=== PATIENT | female | born 1995 ===

== ENCOUNTER 2018-04-30 02:41 | Inpatient (IN) ==
[~2018-04-30 02:41] MED LIST: *HR* Nalbuphine 10 MG/ML AMPUL IVP PRN; Famotidine 20 MG/2 ML VIAL IVP PRN; Metoclopramide 10 MG/2 ML VIAL IVP PRN; Naloxone 0.4 MG/ML INJ IVP PRN; Ondansetron 4 MG/2 ML VIAL IVP PRN
[2018-04-30] MEDS ORDERED: Ringers Solution, Lactated 1,000 ML IVC SCH (02:45)
[2018-04-30 03:07] LABS: Amphetamine Screen,Urine Negative ng/mL (Cutoff=1000); Barbiturate Screen,Urine Negative ng/mL (Cutoff=200); Benzodiazepines Screen,Urine Negative ng/mL (Cutoff=200); Cannabinoid Screen,Urine Negative ng/mL (Cutoff = 50); Cocaine Screen,Urine Negative ng/mL (Cutoff= 300); Opiate Screen,Urine Negative ng/mL (Cutoff=300); Phencyclidine Screen,Urine Negative ng/mL (Cutoff=25)
[2018-04-30 03:11] LABS: Basophils % 0.2 %; Eosinophils # 0.1 K/mcL (0.0-0.6); Eosinophils % 0.6 %; Hematocrit 37.4 % (35.3-44.9); Hemoglobin 12.8 g/dL (11.5-15.4); Immature Granulocytes % 0.8 % (0-4); Lymphocytes # 1.9 K/mcL (0.6-4.6); Lymphocytes % 20.1 %; Mean Corpuscular HGB Conc 34.2 g/dL (31.6-35.5); Mean Corpuscular Hemoglobin 30.4 pg (28.0-33.3); Mean Corpuscular Volume 88.8 fL (83.0-100.0); Monocytes # 0.7 K/mcL (0.0-1.3); Monocytes % 7.1 %; Neutrophils # 6.6 K/mcL (1.6-8.9); Platelet Count 189 K/mcL (140-400); Red Blood Count 4.21 M/mcL (3.82-4.97); Red Cell Distribution Width 12.9 % (11.5-14.5); Segmented Neutrophils % 71.2 %
--- NOTE | 2018-04-30 06:26 | OB/GYN History & Physical ---
Date of Encounter: 04/30/18 Time of Encounter: 06:22 Assessment and Plan (1) 36 weeks gestation of Current visit: Yes Status: Acute admitted for delivery (2) Spontaneous rupture of membranes Current visit: Yes Status: Acute Admitted for delivery Dr. Bhat aware of POC GBS: Negative History of Present Illness Chief complaint: SROM HPI: Ms. Weller is a 22 year old female at 36w6d with EDC of 05/22/2018 presented to labor and delivery with complaints of spontaneous rupture of membranes. Patient reports she woke up in a puddle of clear fluid at 0050. Patient denies feeling contractions. Patient reports good movement. Patient denies any complications with . Patient did have a positive chlamydia test early in but since has had a negative ОЛЬГА. Patient receives care with Dr. Scott. Blood type: O positive Rubella: Immune Hep B: nonreactive GBS: Negative Past Med Surg Social Fam HX - Past Medical History Source: patient Medical history: asthma Psychiatric history: no psych history - Past Surgical History Surgical History: no surgical history - Social History Smoking Status: Never smoker Alcohol use: none Drug use: none Current living situation: Home - Independent Activity Level: Independent ambulation - Family History Mother Age: 41 Living Status: Still Living Hx Family Cardiac Disorders: No Hx Family Respiratory Disorders: No Hx Family Cancer: No Hx Family GI Disorders: No Hx Family Genitourinary Disorders: No Hx Family Endocrine Disorder: No Hx Family Musculoskeletal Disorders: No Hx Family Neuromuscular Disorders: No Hx Family Neurologic Disorders: No Hx Family HEENT Disorders: No Hx Family Autoimmune Disorders: No Hx Family Reproductive Disorders: No Hx Family Psychosocial Disorders: No Hx Family Medical Disorders: No Obstetrical History - Pregnancies : 2 Para: 0 Term: 0 : 0 Ab's: 1 (2015) Livin Medications and Allergies Formula Tablet 1 tab PO DAILY 04/30/18 [History] Allergy/AdvReac Type Severity Reaction Status Date / Time No Known Allergies Allergy Verified 04/30/18 03:36 Review of System OB - Constitutional Constitutional ROS IM: no chills, no fever(s), no headache(s) - Cardiovascular Cardiovascular: no chest pain, no edema, no lightheadedness, no palpitations, no syncope - Respiratory Respiratory: no cough - Gastrointestinal Gastrointestinal: no abdominal pain, no cramping, no diarrhea, no heartburn, no nausea, no vomiting - Genitourinary Genitourinary: vaginal discharge (per HPI), no abnormal vaginal bleeding, no dysuria, no flank pain, no urinary frequency, no urinary urgency, no vaginal odor, no vaginal pruritis Exam - Vital Signs Vital signs: Initial Vital Signs Temp Pulse Resp BP 99.1 F 111 18 135/70 04/30/18 02:25 04/30/18 02:25 04/30/18 02:25 04/30/18 02:25 - Constitutional Constitutional: well developed, well nourished, no acute distress, average body habitus - HEENT HEENT: Normocephaly, Mucus Membranes Moist - Neck Neck exam: full ROM, supple - Lungs Respiratory exam: CTAB - Cardiovascular Cardiovascular exam: RRR, +S1, +S2 - Abdomen Abdomen: Present: bowel sounds normal, gravid, non tender - Extremities Extremities exam: full ROM, normal inspection Deep Tendon Reflex Grade: 2+ Normal - Cervix Dilation: 6 (per RN ) Effacement: 80 Station: -1 - Uterus Uterus exam: Present: normal size, normal contour - Anus/Rectum Anus/Rectum: Present: normal perianal skin - Comments Comments: FHR 135 bpm moderate variability Contractions 2-3 min apart Results Result Diagrams: 04/30/18 02:59 All other labs normal. - VTE Reasons for not Prescribing Prophylaxis: Treatment not Indicated - Low risk for VTE
[2018-04-30] MEDS ORDERED: miSOPROStol 25 MCG TABLET PO SCH (08:00)
[2018-04-30] MEDS ORDERED: Oxytocin 20 units/ LR 1000 mL 20 UNIT/1,000 ML BAG IVC ONE (12:23)
--- NOTE | 2018-04-30 13:06 | OB Labor Progress Note ---
Date of Encounter: 04/30/18 Time of Encounter: 13:04 Labor Progress Note - Subjective Subjective: tolerating contractions well - Cervix Cervix: 9 per RN - Heart Tones Heart Tones: 135/moderate/+accels/ variable - [place]: adjusted - Interventions Interventions: frequent repositioning Anticipate - Plan Physician notified: No
--- NOTE | 2018-04-30 15:41 | OB/GYN Procedure Note ---
Delivery - Delivery Date: 04/30/18 Provider: Claudia Weaver Intrapartum events: none Delivery induction: misoprostol Delivery monitor: external FHT, external uterine Anesthesia: local Quantitated Blood Loss: 300 - (s) Infant A Infant Delivery Date: 04/30/18 Infant Delivery Time: 14:06 Presentation: vertex Position: OA Route of delivery: Gender: Male Viability: Viable Pounds: 7 Ounces: 8 at 1 minute: 8 at 5 mins: 9 Shoulder Dystocia: not encountered Specimens collected: cord blood Placenta: spontaneous Cord: nuchal cord - Repair Episiotomy: none Laceration Description: Perineal - 2nd Degree - Complications Delivery complications: none Delivery comments: Spontaneous rupture and cytotec for augmentation, progressed to complete, maternal bearing down efforts to of liveborn male. Vertex delivered OA, Nuchal cord identified and reduced, after repositioning maternal legs shoulders followed. No shoulder dystocia encountered. placed on maternal abdomen for drying and stimulation. APGARS 8/9. Placenta delivered sponatenously and complete upon inspection, fundus massaged until firm, and pitocin started per policy, moderate uterine bleeding still noted, methergine given IM. Second degree perineal laceration repaired with the assistance of Dr. Escalante. Mom and left bonding skin to skin. - Disposition Mom disposition: stable in LDR [place] disposition: stable in LDR
[2018-04-30] MEDS ORDERED: Benzocaine/Menthol 56 GM AEROSOL SPRAY TP PRN (16:22)
[2018-04-30] MEDS ORDERED: Acetaminophen 325 MG TABLET PO PRN (16:22)
[2018-04-30] MEDS ORDERED: Oxytocin 20 units/ LR 1000 mL 20 UNIT/1,000 ML BAG IVC SCH (16:22)
[2018-04-30] MEDS ORDERED: Lanolin 28 GM TUBE TP PRN (16:22)
[2018-04-30] MEDS: Ibuprofen 600 MG TABLET PO PRN (19:48)
[2018-05-01] MEDS ORDERED: Methylergonovine 0.2 MG/ML AMPUL IM ONE (07:27)
[2018-05-01 08:08] LABS: Basophils % 0.3 %; Eosinophils % 0.3 %; Hematocrit 33.6 % (35.3-44.9); Hemoglobin 11.3 g/dL (11.5-15.4); Immature Granulocytes % 0.8 % (0-4); Lymphocytes # 2.9 K/mcL (0.6-4.6); Lymphocytes % 22.1 %; Mean Corpuscular HGB Conc 33.6 g/dL (31.6-35.5); Mean Corpuscular Hemoglobin 30.8 pg (28.0-33.3); Mean Corpuscular Volume 91.6 fL (83.0-100.0); Mean Platelet Volume 9.9 fL (9.4-12.4); Monocytes # 0.7 K/mcL (0.0-1.3); Monocytes % 5.3 %; Neutrophils # 9.3 K/mcL (1.6-8.9); Platelet Count 185 K/mcL (140-400); Red Blood Count 3.67 M/mcL (3.82-4.97); Red Cell Distribution Width 13.2 % (11.5-14.5); Segmented Neutrophils % 71.2 %
--- NOTE | 2018-05-01 08:12 | Operative Note ---
Date of procedure: 04/30/18 Pre-op diagnosis: Status post vaginal delivery, vaginal laceration Post-op diagnosis: same Procedure: Repair of perineal laceration Complications: none Anesthesia: local Surgeon: Jose Escalante Was there an visitor service assistant present: Yes Veterinary Surgery Technologist: Claudia Weaver Estimated blood loss (cc): 300 Specimen: none Condition: stable Disposition: other Procedure in Detail: She is a 22-year-old female who had a normal spontaneous vaginal delivery without any complications. Patient did have a perineal laceration which extended up into the right labia majora. The metal drill press operator noted the delivery was having difficulty reapproximating the edges and asked for assistance. I did present identified with the laceration was and this was repaired with a 3-0 Monocryl in usual fashion. Once we had the repair intact no bleeding was noted uterus is explored clots removed from the endometrial cavity and the procedure was terminated patient tolerated the procedure well.
[2018-05-01] MEDS: Ibuprofen 600 MG TABLET PO PRN (08:22)
[2018-05-01] MEDS: Prenatal Vit/FA 1 EACH TABLET PO SCH (08:25)
--- NOTE | 2018-05-01 08:59 | OB/GYN Progress Note ---
Date of Encounter: 05/01/18 Time of Encounter: 08:56 - Assessment and Plan (1) Vaginal delivery Current Visit: Yes Status: Acute Patient meeting day one milestones. Pain well-controlled with prescribed medications. Voiding without difficulty, tolerating regular diet. Patient reports bowel movement last night. Anticipate discharge either today or tomorrow (2) Breast feeding status of mother Current Visit: Yes Status: Acute support as needed. Patient is unsure about and doesn't have any family around for support. Patient is given the option to stay until tomorrow if she feels the need to get more help. She will speak with her and let her nurse know what she decides. (3) Second degree perineal laceration Current Visit: Yes Status: Acute Ice packs, dermoplast, Motrin as needed for pain. Subjective - Subjective Principal diagnosis: Status post vaginal delivery Interval history: Delivery Date: 04/30/18 Provider: Claudia Weaver Intrapartum events: none Delivery induction: misoprostol Delivery monitor: external FHT, external uterine Anesthesia: local Quantitated Blood Loss: 300 - (s) Infant A Delivery Date: 04/30/18 Delivery Time: 14:06 Presentation: vertex Position: OA Route of delivery: Gender: Male Viability: Viable Pounds: 7 Ounces: 8 at 1 minute: 8 at 5 mins: 9 Shoulder Dystocia: not encountered Specimens collected: cord blood Placenta: spontaneous Cord: nuchal cord - Repair Episiotomy: none Laceration Description: Perineal - 2nd Degree - Complications Delivery complications: none Delivery comments: Spontaneous rupture and cytotec for augmentation, progressed to complete, maternal bearing down efforts to of liveborn male. Vertex delivered OA, Nuchal cord identified and reduced, after repositioning maternal legs shoulders followed. No shoulder dystocia encountered. infant placed on maternal abdomen for drying and stimulation. APGARS 8/9. Placenta delivered sponatenously and complete upon inspection, fundus massaged until firm, and pitocin started per policy, moderate uterine bleeding still noted, methergine given IM. Second degree perineal laceration repaired with the assistance of Dr. Escalante. Mom and left bonding skin to skin. - Disposition Mom disposition: stable in LDR disposition: stable in LDR Patient reports: appetite normal, voiding normally, pain well controlled, ambulating normally : doing well, nursing well Objective - Latest Vital Signs Latest vital signs: Vital Signs Temp Pulse Resp BP Pulse Ox 05/01/18 07:30 97.7 F 97 16 114/64 05/01/18 03:10 98.5 F 108 14 118/67 97 04/30/18 19:30 98.5 F 110 14 120/56 97 04/30/18 18:59 98.0 F 109 16 129/59 97 04/30/18 18:05 98.5 F 104 16 121/78 98 04/30/18 16:59 98.3 F 90 16 124/69 99 Intake and Output 04/30/18 05/01/18 05/01/18 23:59 07:59 15:59 Intake Total 400 / 400 Output Total 1150 / 1150 1300 / 1300 Balance -1150 / -1150 -900 / -900 Intake: Oral 400 / 400 Output: Urine 1150 / 1150 1300 / 1300 Other: Weight 85 kg - Exam Lungs: bilateral: normal Chest: Normal S1, Normal S2 Extremities: Present: normal Abdomen: Present: normal appearance, soft Uterus Position: At Umbilicus, Midline - Labs Labs: Laboratory Results - last 24 hr 05/01/18 07:46 WBC 13.0 H RBC 3.67 L Hgb 11.3 L D Hct 33.6 L MCV 91.6 MCH 30.8 MCHC 33.6 RDW 13.2 Plt Count 185 MPV 9.9 Immature Gran % 0.8 Seg Neutrophils % 71.2 Lymphocytes % 22.1 Monocytes % 5.3 Eosinophils % 0.3 Basophils % 0.3 Neutrophils # 9.3 H Lymphocytes # 2.9 Monocytes # 0.7 Eosinophils # 0.0 Basophils # 0.0
[2018-05-02 08:16] VITALS: BP 111/69
--- NOTE | 2018-05-02 10:12 | Discharge Summary ---
Date of Encounter: 05/02/18 Time of Encounter: 10:10 - Discharge Diagnosis (1) Status post vaginal delivery Priority: Primary Status: Acute Comments: Pt meeting PP day 2 milestones. Reports pain managed by Ibuprofen. Discussed safe spacing and control options. Pt desires BPS and has spoken with Dr. Scott about this previously. Patient is considering her other options before her PP appt. Pt desires to guest while is inpatient. Anticipate discharge home today. (2) Breast feeding status of mother Priority: Secondary Status: Acute - Discharge Medications Prescriptions: Ibuprofen [Motrin] 600 mg PO Q6HR PRN #60 tablet PRN Reason: Cramping Breast Pump [BREAST PUMP] 1 each .ROUTE AD #1 each Docusate [Colace] 100 mg PO BID #60 capsule Home Medications: Formula Tablet 1 tab PO DAILY 04/30/18 [History] Benzocaine/Menthol [place] [Dermoplast [place]] 1 appl TP QID PRN aerosol 05/02/18 [Rx] Breast Pump [BREAST PUMP] 1 each .ROUTE AD #1 each 05/02/18 [Rx] Docusate [Colace] 100 mg PO BID #60 capsule 05/02/18 [Rx] Ibuprofen [Motrin] 600 mg PO Q6HR PRN #60 tablet 05/02/18 [Rx] Lanolin 1 appl TP QID PRN tube 05/02/18 [Rx] Allergies/Adverse Reactions: Allergy/AdvReac Type Severity Reaction Status Date / Time No Known Allergies Allergy Verified 04/30/18 03:36 Data Procedures and tests throughout hospitalization: Laboratory Tests 04/30/18 04/30/18 04/30/18 02:47 02:59 02:59 WBC 9.3 RBC 4.21 Hgb 12.8 Hct 37.4 MCV 88.8 MCH 30.4 MCHC 34.2 RDW 12.9 Plt Count 189 MPV 10.0 Immature Gran % 0.8 Seg Neutrophils % 71.2 Lymphocytes % 20.1 Monocytes % 7.1 Eosinophils % 0.6 Basophils % 0.2 Neutrophils # 6.6 Lymphocytes # 1.9 Monocytes # 0.7 Eosinophils # 0.1 Basophils # 0.0 Urine Opiates Screen Negative Ur Barbiturates Screen Negative Ur Phencyclidine Scrn Negative Ur Amphetamines Screen Negative U Benzodiazepines Scrn Negative Urine Cocaine Screen Negative U Marijuana (THC) Screen Negative Ur Drug Screen Interp See Below Hep Bs Antigen Nonreactive 05/01/18 07:46 WBC 13.0 H RBC 3.67 L Hgb 11.3 L D Hct 33.6 L MCV 91.6 MCH 30.8 MCHC 33.6 RDW 13.2 Plt Count 185 MPV 9.9 Immature Gran % 0.8 Seg Neutrophils % 71.2 Lymphocytes % 22.1 Monocytes % 5.3 Eosinophils % 0.3 Basophils % 0.3 Neutrophils # 9.3 H Lymphocytes # 2.9 Monocytes # 0.7 Eosinophils # 0.0 Basophils # 0.0 Urine Opiates Screen Ur Barbiturates Screen Ur Phencyclidine Scrn Ur Amphetamines Screen U Benzodiazepines Scrn Urine Cocaine Screen U Marijuana (THC) Screen Ur Drug Screen Interp Hep Bs Antigen Date of admission: 04/30/18 02:41 Primary care physician: JACKLYN ARCHULETA Consults: 04/30/18 16:22 Consult to Security Shift Manager [CONS] Routine Comment: Vaginal delivery, consult needed Discharging clinician: Shena Lombardo Anticipated date of discharge: 05/02/18 - Patient Status Disposition: Home, Self-Care Condition: Good Overall status at discharge: patient is progressing back to baseline - Discharge Instructions Follow Up With: NONE,PCP [Primary Care Provider] - Christine Scott, [Partnered Physician] - - Diet and Activity Activity: increase activity as tolerated Diet: advance to your usual diet Hospital Course Reason for admission: IUP - , induction of labor, rupture of membranes Delivery: Episiotomy: none Laceration: 2nd degree Other procedures: none complications: none Discharge diagnosis: delivery baby: male Hospital course: - Delivery Date: 04/30/18 Provider: Claudia Weaver Intrapartum events: none Delivery induction: misoprostol Delivery monitor: external FHT, external uterine Anesthesia: local Quantitated Blood Loss: 300 - (s) A Delivery Date: 04/30/18 Delivery Time: 14:06 Presentation: vertex Position: OA Route of delivery: Gender: Male Viability: Viable Pounds: 7 Ounces: 8 at 1 minute: 8 at 5 mins: 9 Shoulder Dystocia: not encountered Specimens collected: cord blood Placenta: spontaneous Cord: nuchal cord - Repair Episiotomy: none Laceration Description: Perineal - 2nd Degree - Complications Delivery complications: none Delivery comments: Spontaneous rupture and cytotec for augmentation, progressed to complete, maternal bearing down efforts to of liveborn male. Vertex delivered OA, Nuchal cord identified and reduced, after repositioning maternal legs shoulders followed. No shoulder dystocia encountered. infant placed on maternal abdomen for drying and stimulation. APGARS 8/9. Placenta delivered sponatenously and complete upon inspection, fundus massaged until firm, and pitocin started per policy, moderate uterine bleeding still noted, methergine given IM. Second degree perineal laceration repaired with the assistance of Dr. Escalante. Mom and infant left bonding skin to skin. Time Attestation: Total time spent providing and/or coordinating discharge services: Exam - Constitutional Vitals: Temp Pulse Resp BP Pulse Ox 98.0 F 93 16 111/69 98 05/02/18 07:30 05/02/18 07:30 05/02/18 07:30 05/02/18 07:30 05/01/18 19:45 General appearance IM: A&O X 3, pleasant, no acute distress - Respiratory Respiratory exam: Present: CTAB - Cardiovascular Cardiovascular exam IM: Present: RRR - GI/Abdominal GI/Abdominal exam IM: normal bowel sounds - Uterine Tone: Firm Uterus Position: 1 Finger Below Umbilicus, Midline - Extremities Exam Extremities exam IM: Present: normal capillary refill, pedal edema (1+). Absent: calf tenderness - Neurological Exam Neurological exam: alert, oriented X3, reflexes normal
[2018-05-02] MEDS: Prenatal Vit/FA 1 EACH TABLET PO SCH (10:51)
== END 2018-05-02 11:03 | disposition home or self-care (01) | DRG 805 ==
LOC: 1NENULAB → 1NENUOBS 17:00
PROVIDERS: ADMIT Advanced Practice Midwife; ATTEND Advanced Practice Midwife